=== PATIENT | male | born 1945 | race Caucasian/White ===

== ENCOUNTER 2018-08-24 08:42 | Day surgery (SDC) | payer OTHER ==
[2018-08-23 15:04] VITALS: BMI 29.6
[2018-08-24 10:19] LABS: INR 1.13 (0.83-1.09); PROTHROMBIN TIME (PATIENT) 13.3 SEC (9.7-13.0)
[2018-08-24 10:40] LABS: BASO % 0.4 % (0-2.0); EOS % 4.6 % (0-4.5); HEMATOCRIT 41.6 % (35.4-49); HEMOGLOBIN 13.7 GM/dL (11.7-16.9); LYMPH % 37.5 % (8-40); MCH 30.8 pg (25.7-33.7); MCHC 32.9 g/dl (32.0-35.9); MEAN CELL VOLUME 93.6 fl (80-96); MEAN PLT VOLUME 8.5 fl (7.5-11.1); MONO % 7.5 % (3.8-10.2); PLATELET COUNT 150 K/MM3 (134-434); RBC 4.44 M/mm3 (4.00-5.60); RDW 13.6 % (11.9-15.9); WHITE BLOOD COUNT 3.7 K/mm3 (4.0-10.0)
[2018-08-24 16:28] VITALS: TEMP 97.5
[2018-08-24 16:58] VITALS: BP 118/68; PULSE 64
--- NOTE | 2018-09-02 20:00 | PATH ---
Surgical Pathology Report Patient Name: THOMAS ALMANZA Med. Rec. #: [id number] /Age/Gender: 1945 (Age: 72) / M Account: [id number] Location: RADIOLOGY INTER Taken: 08/24/2018 Received: 08/24/2018 Reported: 09/02/2018 Physicians: Brent Pinon M.D. Specimen(s) Received LIVER BIOPSY Clinical History Preop dx: H/O prostate CA, abnormal LFTs, no focal liver abnormality on imaging, AST-196, ALT-316, alk phos- 128, GGT-167, bilirubin- 0.4, negative AMA and viral hepatitis B serologics, strong + ASMA, on tamsulosin- recently discontinued. 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 TRICHROME STAIN SHOWS PERICELLULAR, PERIVENULAR, AND PERIPORTAL FIBROSIS WITH FEW FIBROUS SEPTA. RETICULIN STAIN SHOWS AN INTACT SINUSOIDAL ARCHITECTURE. IRON STAIN SHOWS SIDEROSIS IN KUPFFER CELLS ONLY, SUGGESTIVE OF SECONDARY IRON OVERLOAD. PAS AND PAS WITH DIASTASE STAINS ARE NEGATIVE FOR [id number] GLOBULES. NEGATIVE FOR CHOLESTASIS, CHOLANGITIS/BILE DUCT INJURY, GRANULOMAS, OR MALIGNANCY. Comment: Steatohepatitis may be associated with diabetes mellitus, metabolic syndromes, obesity, medications, alcohol use, etc. The biopsy shows some portal tracts with mild mixed chronic inflammation including numerous lymphocytes and few scattered plasma cells. Extensive lymphoplasmacytic interface and perivenular activity that is typically seen in type 1 autoimmune hepatitis is not present in this sample. The portal inflammation is mild and non-specific and may be due to fatty liver disease, drug/toxin-induced injury, or immune-mediated injury (autoimmune hepatitis verus drug-induced autoimmune-like hepatitis). Clinical and laboratory correlation recommended. Case discussed with Dr. Bliss on 09-01-18. Case sent for consultation to Dr. Coco Everett from [place], [place], [place] the diagnosis above reflects her opinion. Electronically Signed Lu Reynolds M.D. Gross Description Received in formalin labeled "liver tissue," are 3 suggs, cylindrical portions of soft tissue ranging from 0.8-1.5 cm in length and averaging 0.1 cm in diameter. The specimens are submitted in toto in one cassette. 08/24/201808/24/2018
== END 2018-08-24 16:45 | disposition home or self-care (01) ==
LOC: JRADIR 08:42
PROVIDERS: ATTEND Internal Medicine Gastroenterology
PROC: 0FB03ZX Excision of Liver, Percutaneous Approach, Diagnostic (ICD-10-PCS; principal; 2018-08-24)
DX: K75.81 Nonalcoholic steatohepatitis (NASH) (principal); Z85.46 Personal history of malignant neoplasm of prostate
CPT/HCPCS: 36415; 76942-TC; 85025; 85610; 87899; 88307-TC; 88313-TC

== ENCOUNTER 2023-10-14 04:21 | Day surgery (SDC) | payer OTHER ==
[2023-10-07 12:05] VITALS: BMI 29.6
[2023-10-14 10:01] VITALS: TEMP 98
[2023-10-14 10:32] VITALS: BP 99/51; PULSE 60; RESP 19
== END 2023-10-14 10:40 | disposition home or self-care (01) ==
LOC: JASU-ENDO 04:21
PROVIDERS: ATTEND Internal Medicine Gastroenterology
PROC: 0DBH8ZX Excision of Cecum, Via Natural or Artificial Opening Endoscopic, Diagnostic (ICD-10-PCS; principal; 2023-10-14 09:30)
DX: Z12.11 Encounter for screening for malignant neoplasm of colon (principal); K57.30 Diverticulosis of large intestine without perforation or abscess without bleeding; K62.7 Radiation proctitis; D12.0 Benign neoplasm of cecum; Z85.46 Personal history of malignant neoplasm of prostate
CPT/HCPCS: 88305-TC